=== PATIENT | male | born 1950 | race Caucasian/White ===

== ENCOUNTER → 2017-06-04 | Outpatient (CLI) | payer MEDICARE ==
[~2017-06-04] MED LIST: IOHEXOL 350 MG/ML 100 ML (OMNIPAQUE 350) VIAL IV ONE; NS 100 ML (IVPB) BAG IV ONE
[2017-06-04 13:43] LABS: BLOOD UREA NITROGEN 14 MG/DL (7-18); BUN/CREATININE RATIO 19; CREATININE SERUM 0.74 MG/DL (0.60-1.30); GFR ESTIMATED > 60
--- NOTE | 2017-06-04 15:07 | Diagnostic Imaging Report ---
PROCEDURE: US Carotid Duplex Bilateral. TECHNIQUE: Multiple real-time grayscale images were obtained over the carotid arteries in various projections bilaterally. Additional duplex Doppler and color Doppler images were also obtained. INDICATION: Confusion and syncope. FINDINGS: There is dense calcified plaquing noted in the carotid bulbs bilaterally extending into the internal carotid arteries. Waveforms and peak velocities appear normal throughout the carotid arteries. Carotid ratios are normal bilaterally. The left vertebral artery was difficult to visualize but did show some antegrade flow. Right vertebral artery appears normal. IMPRESSION: 1. Rather dense calcified plaquing within the carotid bulbs and internal carotid arteries bilaterally with maximal stenosis estimated 30% or less. 2. Left vertebral artery is suboptimally visualized though did appear to have antegrade flow. Depending on patient's symptoms, we would consider further evaluation for evaluating the vertebral arteries. Dictated by: Dictated on workstation # [id number]
--- NOTE | 2017-06-04 15:19 | Diagnostic Imaging Report ---
PROCEDURE: CT head with and without contrast. TECHNIQUE: Multiple contiguous axial images were obtained through the brain before and after the administration of intravenous contrast. INDICATION: Weakness and syncope. FINDINGS: Noncontrasted images show generalized cortical atrophy. There is no evidence of intracranial hemorrhage. Ventricles are not dilated. There is periventricular white matter hypodense lesions noted, most prominently in the left internal capsular region. No evidence of cortical edema. Basal cisterns are clear. Following IV contrast injection, there is normal enhancement of the intracranial vessels with no evidence of occlusive disease. No evidence of aneurysms. There are no enhancing lesions. Mastoid air cells and paranasal sinuses are clear. Orbital contents appear normal. IMPRESSION: 1. Generalized cortical atrophy. Periventricular white matter changes likely representing chronic small vessel disease. 2. No acute intracranial abnormalities demonstrated. Dictated by: Dictated on workstation # [id number]
== END ==
LOC: RAD 13:08
PROVIDERS: ATTEND Family Medicine
DX: I65.23 Occlusion and stenosis of bilateral carotid arteries (principal); R55 Syncope and collapse; R41.0 Disorientation, unspecified; R53.1 Weakness
CPT/HCPCS: 36415; 70470; 82565; 84520; 93880

== ENCOUNTER → 2017-11-15 | Outpatient (CLI) | payer MEDICARE ==
--- NOTE | 2017-11-15 16:33 | Diagnostic Imaging Report ---
PROCEDURE: MRI right joint upper extremity without contrast. TECHNIQUE: Multiplanar, multisequence MR imaging of the right shoulder was performed without contrast. COMPARISON: None available. INDICATION: Shoulder pain after fall. FINDINGS: Rotator cuff: The subscapularis tendon is completely avulsed/torn from the humerus and retracted to the level of the glenohumeral joint. There is also a full-thickness tear of the anterior three quarters of the supraspinatus. A few of the posterior insertional fibers may remain intact. The supraspinatus torn fibers are retracted to the glenohumeral joint as well. The infraspinatus remains intact. Teres minor is normal. Mild fatty atrophy of the supraspinatus and subscapularis muscle bellies. Glenoid labrum: Glenoid labrum has a truncated appearance with free edge throughout its entirety likely due to degenerative macerated tearing. Long head of biceps: Long head of the biceps is not seen in the extracapsular portion or the intracapsular segment indicative of rupture of the long of the biceps. The intracapsular segment of the long of the biceps may be flipped anterior to the glenohumeral joint at the level of the subscapularis tear. Bones and cartilage: Humeral head is normal in morphology without fracture or focal osseous lesion. No glenohumeral chondromalacia. The acromioclavicular joint is normal in alignment without significant degenerative change. Soft tissues: No glenohumeral joint effusion. No MRI findings to suggest adhesive capsulitis. Fluid in the subacromial and subdeltoid space is compatible with full-thickness cuff tear. IMPRESSION: 1. Complete tear of the subscapularis which is retracted to the glenohumeral joint. 2. Full-thickness and near-complete tear of the anterior two-thirds of the supraspinatus. 3. Complete rupture of the long head of the biceps. Torn intracapsular segment may be displaced anterior to the glenohumeral joint and adjacent to the retracted subscapularis fibers. 4. Degenerative macerated tearing of the glenoid labrum. 5. Subacromial and subdeltoid bursitis. Dictated by: Dictated on workstation # [id number]
== END ==
LOC: RAD 11:21
PROVIDERS: ATTEND Nurse Practitioner Family
DX: S46.811A Strain of other muscles, fascia and tendons at shoulder and upper arm level, right arm, initial encounter (principal); S46.111A Strain of muscle, fascia and tendon of long head of biceps, right arm, initial encounter; S43.491A Other sprain of right shoulder joint, initial encounter; M75.121 Complete rotator cuff tear or rupture of right shoulder, not specified as traumatic; M75.51 Bursitis of right shoulder; M24.011 Loose body in right shoulder; W19.XXXA Unspecified fall, initial encounter
CPT/HCPCS: 73221

== ENCOUNTER → 2022-09-08 | Outpatient (CLI) | payer MEDICARE ==
--- NOTE | 2022-09-08 18:25 | Diagnostic Imaging Report ---
INDICATION: Low back pain. Sciatica. FINDINGS: 3 views. Lumbosacral spine shows good alignment. The body height is well-maintained. There is loss of disc space at L5-S1 with sclerotic endplate changes and vacuum phenomena. Hypertrophic lipping of the endplates. Facets show hypertrophic change as well. SI joints show sclerosis bilaterally. Aorta is densely calcified. IMPRESSION: There is rather advanced degenerative disc disease at L5-S1. Dictated by: Dictated on workstation # [id number]
--- NOTE | 2022-09-08 18:29 | Diagnostic Imaging Report ---
INDICATION: Bilateral hip pain. FINDINGS: 5 views. The pelvis is intact without evidence of fracture. Total arthroplasty of both hips. Components are all in good alignment. No evidence of hardware loosening or cortical fractures. There is moderate sclerotic change of the SI joints. 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 Dictated by: Dictated on workstation # [id number]
--- NOTE | 2022-09-08 18:43 | Diagnostic Imaging Report ---
INDICATION: Sciatica, pain COMPARISON: 09/08/2022. TECHNIQUE: 3 radiographs of the sacroiliac joints dated 09/08/2022. FINDINGS: Bilateral hip arthroplasties are partially visualized. The bilateral sacroiliac joints are intact with mild degenerative changes with mild sclerosis present without significant erosive changes involving the sacroiliac joint. No acute fracture. Mild degenerative changes noted within the visualized lower lumbar spine. IMPRESSION: No acute osseous abnormality with mild degenerative changes associated with the bilateral sacroiliac joints and partially visualized lower lumbar spine. Dictated by: Dictated on workstation # [id number]
== END ==
LOC: RAD 13:04
PROVIDERS: ATTEND Family Medicine
DX: M53.3 Sacrococcygeal disorders, not elsewhere classified (principal); Z96.643 Presence of artificial hip joint, bilateral; M51.37 Other intervertebral disc degeneration, lumbosacral region
CPT/HCPCS: 72100; 72202; 73523